=== PATIENT | female | born 1970 | race Caucasian/White ===

== ENCOUNTER 2019-06-09 11:13 | Day surgery (SDC) | payer BC ==
[~2019-06-09] VITALS: Ht 162.7 cm; Wt 78.4 kg
[2019-06-09] VITALS (12 sets, daily range): BP systolic 93–129; BP diastolic 60–76; PULSE 63–100; TEMP 97.5
[~2019-06-09 11:13] MED LIST: AVALOX PO; CLINDAMYCIN HC150 MG PO; FLAGYL PO; LOPERAMIDE2 MG PO; PREDNISONE10 MG PO; PRIMATENE0.22 MG/A1 IH; TYLENOL 325MG325 MG PO
[2019-06-09] MEDS ORDERED: PLAVIX 75MG TAB75 MG PO (11:42)
[2019-06-09] MEDS ORDERED: NORVASC2.5 MG PO (11:42)
[2019-06-09] MEDS ORDERED: MASON NATURAL1200 MG PO (11:43)
[2019-06-09] MEDS ORDERED: NITROSTAT0.4 MG/TAB SL (11:43)
[2019-06-09] MEDS ORDERED: CLARITIN 1010 MG/TAB PO (11:45)
[2019-06-09] MEDS ORDERED: 00186-0372-20 IH (11:46)
--- NOTE | 2019-06-09 11:59 | NUR ---
20G IV INSERTED TO RIGHT AC. LABS OBTAINED UPON INSERTION.
--- NOTE | 2019-06-09 12:10 | NUR ---
CONSENT OBTAINED FROM PATIENT.
[2019-06-09 12:13] LABS: CALCIUM 9.8 mg/dL (8.4-10.2); CREATININE, serum 0.7 (0.52-1.25)
[2019-06-09 12:15] LABS: PROTHROMBIN TIME 12.1 SECONDS (9.7-12.8)
[2019-06-09 12:27] LABS: HEMATOCRIT 43.9 % (37.0-47.0); HEMOGLOBIN 15.7 g/dl (12.5-16.0); MEAN CELL VOLUME 85 fl (80.0-100.0); MEAN CORPUSCULAR HEMOGLOBIN 30 pg (27.0-31.0); MEAN CORPUSCULAR HGB CONC 36 g/dl (33.0-37.0); MEAN PLATELET VOLUME 11.2 fl (7.4-10.4); PLATELET COUNT 248 K/mm3 (130-400); RED BLOOD COUNT 5.18 M/mm3 (4.10-5.30); REDCELL DISTRIBUTION WIDTH-CV 12.5 % (11.5-14.5)
--- NOTE | 2019-06-09 12:39 | NUR ---
Initial visit; Patient and her thanked [place] Operator for offering comfort and prayer prior to her "Procedure." Patient nervous and welcomed [place] Operator's visit.
--- NOTE | 2019-06-09 14:00 | NUR ---
PT TAKEN TO LOCK EXPERT FOR PROCEDURE.
--- NOTE | 2019-06-09 14:15 | NUR ---
ALL MEDICATIONS GIVEN VORB WITH MD. SEE MERGE FOR ALL MEDICATION TIMES. SEE MERGE FOR ALL RASS ASSESSMENTS DURING AND POST PROCEDURE. POSITIVE BARBEAU'S TEST IN THE RIGHT WRIST. RADIAL PULSE +2.
--- NOTE | 2019-06-09 14:25 | NUR ---
Report from KRISTOPHER Gillespie.pt in procedure at this time.
[2019-06-09] MEDS ORDERED: CRESTOR 10MG10 MG PO (14:51)
--- NOTE | 2019-06-09 15:05 | NUR ---
Patient transported back to room 15 at this time. Patient hooked back up to monitoring equipment. Patient states she has "dull/aching" pain in her right wrist "2/". Bedside report given to KRISTOPHER Breen. TR band remains in place with 12 mls of air in the band. No oozing or hematoma noted at this time. Site is soft and nontender. Cap refill <3 seconds. Discussed importance of wrist restrictions with patient and spouse. Bed in locked and lowest position. Call light within reach.
--- NOTE | 2019-06-09 15:06 | NUR ---
Pt arrived to room 15 via bed.report from Larisa Márquez.Radial band in place.See flowsheet for vitals.Family at bedside.
--- NOTE | 2019-06-09 19:31 | NUR ---
Discharge instructions given to pt.pt verbalizes understanding.INT removed,catheter tip intact.Right radial dressing clean,dry,and intact.Pt escorted out via wheelchair by this nurse.
== END 2019-06-09 19:34 | disposition home or self-care (01) ==
LOC: COL.CAR 11:13
PROVIDERS: Internal Medicine Cardiovascular Disease
DX: I25.10 Atherosclerotic heart disease of native coronary artery without angina pectoris (principal); R94.39 Abnormal result of other cardiovascular function study; J45.20 Mild intermittent asthma, uncomplicated; Q15.0 Congenital glaucoma; J32.4 Chronic pansinusitis; Z90.710 Acquired absence of both cervix and uterus; Z88.6 Allergy status to analgesic agent; Z88.8 Allergy status to other drugs, medicaments and biological substances; Z86.718 Personal history of other venous thrombosis and embolism; Z87.891 Personal history of nicotine dependence; Z82.49 Family history of ischemic heart disease and other diseases of the circulatory system; Z82.3 Family history of stroke
CPT/HCPCS: J1644; J2250; J3010; Q9967